=== PATIENT | male | born 1975 | race Caucasian/White ===

== ENCOUNTER 2019-06-25 19:31 | Observation (INO) ==
[2019-06-25] MEDS ORDERED: NS 1000 ML 1,000 ML IV ONE ×2 (20:39)
[2019-06-25] MEDS ORDERED: NS 1000 ML 1,000 ML ONE (20:53)
[2019-06-25 21:14] LABS: BASOPHILS # (AUTO) 0.1 X10^3/uL (0.0-0.1); BASOPHILS % (AUTO) 0.8 % (0.2-1.0); EOSINOPHILS # (AUTO) 0.1 x10^3/uL (0.0-0.2); HEMATOCRIT 47.6 % (42.0-54.0); HEMOGLOBIN 16.1 g/dL (13.5-18.0); LYMPHOCYTES # (AUTO) 1.4 X10^3/uL (1.3-2.9); LYMPHOCYTES % (AUTO) 11.8 % (21.0-51.0); MEAN CORPUSCULAR HEMOGLOBIN 31.7 pg (27.0-34.0); MEAN CORPUSCULAR HGB CONC 33.7 g/dL (33.0-35.0); MEAN CORPUSCULAR VOLUME 94.1 fL (80.0-100.0); MEAN PLATELET VOLUME 8.7 fL (7.4-11.0); MONOCYTES # (AUTO) 1.1 x10^3/uL (0.3-0.8); MONOCYTES % (AUTO) 9.7 % (0.0-13.0); NEUTROPHILS % (AUTO) 76.7 % (42.0-75.0); PLATELET COUNT 334 X10^3/uL (150.0-450.0); RED BLOOD COUNT 5.06 X10^6/uL (4.7-6.0); RED CELL DISTRIBUTION WIDTH 14.9 % (11.6-16.5); WHITE BLOOD COUNT 11.7 X10^3/uL (3.6-10.0)
[2019-06-25 21:17] LABS: BLOOD UREA NITROGEN 12 mg/dL (7-18); CALCIUM 8.7 mg/dL (8.5-10.1); CARBON DIOXIDE 24.3 mmol/L (21-32); CHLORIDE 103 mmol/L (98-107); CREATININE 1.41 mg/dL (0.70-1.30); SODIUM 138 mmol/L (136-145); eGFR NON BLACK RACES 59 (>60)
[2019-06-25] MEDS: TORADOL 30 MG VIAL IVP PRN (21:25)
[2019-06-25] MEDS: DILAUDID INJ IVP PRN (21:25)
--- NOTE | 2019-06-25 22:32 | CT ---
CT abdomen and pelvis without contrast Indication: Left flank pain with hematuria Comparison: None available Technique: Multiple axial images of the abdomen and pelvis were obtained from the lung bases to the pubic symphysis without the administration of IV contrast. Coronal and sagittal reformatted images were also provided. Dose reduction techniques including automated exposure control (AEC) and adjustment of mA and kV were utilized. Findings: Overall sensitivity in detection of solid organ injury, mass or inflammatory change along with vascular injury or mesenteric hematoma is severely limited given lack of IV contrast administration. The lung bases are clear. No focal hepatic lesion is identified given limitations of a noncontrast examination. Gallbladder is distended without calcified gallstone or pericholecystic stranding. Bile ducts are normal in caliber. The spleen is normal. There is mild peripancreatic stranding noted adjacent to the pancreatic tail. No ductal dilatation or localizing fluid collection. Adrenal glands are normal. The right kidney demonstrates no nephrolithiasis, hydronephrosis or mass. The left kidney demonstrates no nephrolithiasis, hydronephrosis or mass. Urinary bladder is normal. Prostate gland is normal. The rectum and colon are unremarkable aside for a few distal colonic diverticula. The appendix is normal. No pelvic free fluid or adenopathy. Abdominal aorta is normal in caliber. There is mild scarring within the paraumbilical soft tissues. Review of bone windows demonstrates no acute osseous abnormality. Small disc bulge and moderate spondylosis at L5-S1 is noted. The upper GI tract demonstrates no evidence of mass or obstruction. Impression: 1. Subtle fat stranding adjacent to the pancreatic tail suggest mild acute pancreatitis, correlation with patient's symptoms and lipase levels is recommended. 2. Neither kidney demonstrates evidence of nephrolithiasis or hydronephrosis. 3. Suspected scarring within the paraumbilical soft tissues; however, there are no reported abdominal surgeries. Clinical correlation is needed to exclude a soft tissue infection/cellulitis in this location. 4. Broad-based disc bulge with moderate spondylosis at L5-S1. Reported By:
[2019-06-25 22:58] LABS: AMYLASE 59 Units/L (25-115); LIPASE 498 Units/L (73-393)
[2019-06-25 23:21] LABS: BILIRUBIN,URINE NEGATIVE (NEGATIVE); BLOOD/HEMOGLOBIN,URINE 1+ (NEGATIVE); GLUCOSE, URINE NEGATIVE (NEGATIVE); KETONES,URINE 1+ (NEGATIVE); LEUKOCYTE ESTERASE ,URINE 1+ (NEGATIVE); NITRITES,URINE NEGATIVE (NEGATIVE); PROTEIN,URINE 2+ (NEGATIVE); UROBILINOGEN,URINE 2+ (NORMAL)
[2019-06-25 23:26] LABS: ALANINE AMINOTRANSFERASE 27 Units/L (12-78); ALBUMIN 3.1 g/dL (3.4-5.0); ALKALINE PHOSPHATASE 64 Units/L (46-116); ASPARTATE AMINO TRANSFERASE 22 Units/L (15-37); TOTAL PROTEIN 7.7 g/dL (6.4-8.2)
[2019-06-25 23:29] LABS: APPEARANCE,URINE CLEAR (CLEAR); BACTERIA,URINE NEGATIVE /HPF (NEGATIVE); COLOR,URINE DARK YELLOW (YELLOW); SQUAMOUS EPITHELIAL CELL,UR FEW /HPF (NEGATIVE)
[2019-06-26 05:35] LABS: BASOPHILS % (AUTO) 0.5 % (0.2-1.0); EOSINOPHILS # (AUTO) 0.1 x10^3/uL (0.0-0.2); EOSINOPHILS % (AUTO) 1.3 % (0.9-2.9); HEMATOCRIT 41.8 % (42.0-54.0); LYMPHOCYTES # (AUTO) 1.2 X10^3/uL (1.3-2.9); LYMPHOCYTES % (AUTO) 13.4 % (21.0-51.0); MEAN CORPUSCULAR HEMOGLOBIN 31.6 pg (27.0-34.0); MEAN CORPUSCULAR VOLUME 95.8 fL (80.0-100.0); MEAN PLATELET VOLUME 9.3 fL (7.4-11.0); MONOCYTES % (AUTO) 11.6 % (0.0-13.0); NEUTROPHILS # (AUTO) 6.6 x10^3/uL (2.2-4.8); NEUTROPHILS % (AUTO) 73.2 % (42.0-75.0); PLATELET COUNT 259 X10^3/uL (150.0-450.0); RED BLOOD COUNT 4.36 X10^6/uL (4.7-6.0); RED CELL DISTRIBUTION WIDTH 14.6 % (11.6-16.5)
[2019-06-26 05:44] LABS: HEMOGLOBIN 13.8 g/dL (13.5-18.0)
[2019-06-26 05:50] LABS: ALANINE AMINOTRANSFERASE 17 Units/L (12-78); ALBUMIN 2.5 g/dL (3.4-5.0); ALKALINE PHOSPHATASE 48 Units/L (46-116); ASPARTATE AMINO TRANSFERASE 15 Units/L (15-37); BLOOD UREA NITROGEN 12 mg/dL (7-18); CALCIUM 7.4 mg/dL (8.5-10.1); CARBON DIOXIDE 22.6 mmol/L (21-32); CHLORIDE 106 mmol/L (98-107); COR CA(FOR HYPOALB) 8.6 mg/dL (8.5-10.1); CREATININE 1.25 mg/dL (0.70-1.30); SODIUM 138 mmol/L (136-145); TOTAL PROTEIN 6.1 g/dL (6.4-8.2); eGFR NON BLACK RACES > 60 (>60)
[2019-06-26] MEDS: DILAUDID INJ IVP PRN ×3 (06:00→21:20)
[2019-06-26 07:20] LABS: AMYLASE 54 Units/L (25-115); LIPASE 529 Units/L (73-393)
[2019-06-26] MEDS: NS 1000 ML 1,000 ML IV PRN ×3 (07:23→21:09)
[2019-06-26] MEDS: TORADOL 30 MG VIAL IVP PRN (10:26)
[2019-06-26] MEDS: INVANZ INJ 1 GM VIAL 1 GM in NS 100 ML IV + SPIKE MINIBAG* 100 ML IV SCH (10:27)
[2019-06-26] MEDS: MILK OF MAGNESIA PO SCH ×2 (10:27→21:07)
[2019-06-26] MEDS: COLACE CAP 100 MG PO SCH ×2 (10:27→21:07)
[2019-06-26 11:07] LABS: AMYLASE 50 Units/L (25-115); LIPASE 383 Units/L (73-393)
[2019-06-26] MEDS: ZOFRAN INJ 4 MG VIAL IVP PRN ×2 (11:39→19:50)
[2019-06-27] MEDS: NS 1000 ML 1,000 ML IV PRN (04:05)
[2019-06-27] MEDS: DILAUDID INJ IVP PRN (04:30)
[2019-06-27 06:02] LABS: BASOPHILS % (AUTO) 0.7 % (0.2-1.0); EOSINOPHILS # (AUTO) 0.1 x10^3/uL (0.0-0.2); EOSINOPHILS % (AUTO) 1.9 % (0.9-2.9); HEMATOCRIT 41.1 % (42.0-54.0); HEMOGLOBIN 13.9 g/dL (13.5-18.0); LYMPHOCYTES # (AUTO) 0.8 X10^3/uL (1.3-2.9); MEAN CORPUSCULAR HEMOGLOBIN 31.8 pg (27.0-34.0); MEAN CORPUSCULAR HGB CONC 33.8 g/dL (33.0-35.0); MEAN CORPUSCULAR VOLUME 93.9 fL (80.0-100.0); MEAN PLATELET VOLUME 8.2 fL (7.4-11.0); MONOCYTES # (AUTO) 0.8 x10^3/uL (0.3-0.8); MONOCYTES % (AUTO) 11.7 % (0.0-13.0); NEUTROPHILS # (AUTO) 5.4 x10^3/uL (2.2-4.8); NEUTROPHILS % (AUTO) 74.7 % (42.0-75.0); PLATELET COUNT 281 X10^3/uL (150.0-450.0); RED BLOOD COUNT 4.37 X10^6/uL (4.7-6.0); RED CELL DISTRIBUTION WIDTH 14.9 % (11.6-16.5); WHITE BLOOD COUNT 7.2 X10^3/uL (3.6-10.0)
[2019-06-27 06:15] LABS: ALANINE AMINOTRANSFERASE 19 Units/L (12-78); ALBUMIN 2.6 g/dL (3.4-5.0); ALKALINE PHOSPHATASE 51 Units/L (46-116); AMYLASE 52 Units/L (25-115); ASPARTATE AMINO TRANSFERASE 16 Units/L (15-37); BLOOD UREA NITROGEN 7 mg/dL (7-18); CALCIUM 7.9 mg/dL (8.5-10.1); CARBON DIOXIDE 22.4 mmol/L (21-32); CHLORIDE 100 mmol/L (98-107); CHOL/HDL RATIO 13.2 (0.0-5.0); CHOLESTEROL 237 mg/dL (0-200); CREATININE 1.07 mg/dL (0.70-1.30); HDL CHOLESTEROL 18 mg/dL (40-60); LIPASE 291 Units/L (73-393); SODIUM 133 mmol/L (136-145); TOTAL PROTEIN 6.7 g/dL (6.4-8.2); TRIGLYCERIDES 103 mg/dL (0-150); eGFR NON BLACK RACES > 60 (>60)
[2019-06-27 06:44] VITALS: BMI 34.2
[2019-06-27 07:17] LABS: ERYTHROCYTE SEDIMENTATION RATE 22 MM/HOUR (0-15)
[2019-06-27 09:11] VITALS: BP 116/75
[2019-06-27] MEDS: MILK OF MAGNESIA PO SCH (10:06)
[2019-06-27] MEDS: INVANZ INJ 1 GM VIAL 1 GM in NS 100 ML IV + SPIKE MINIBAG* 100 ML IV SCH (10:06)
[2019-06-27] MEDS: COLACE CAP 100 MG PO SCH (10:06)
== END 2019-06-27 11:45 | disposition home or self-care (01) ==
LOC: MED/SURG
PROVIDERS: ADMIT Internal Medicine; ATTEND Internal Medicine
DX: K85.90 Acute pancreatitis without necrosis or infection, unspecified
CPT/HCPCS: 36415; 74176; 80048; 80053; 80061; 80076; 81001; 82150; 83690; 85025; 85652; 86140; 96367; 96374; A4222; G0378; J1170; J1335; J1885; J2405; J7030; J7050